=== PATIENT | female | born 1935 | race Caucasian/White ===

== ENCOUNTER → 2017-06-25 | Outpatient (CLI) | payer OTHER, MEDICARE | LOC: CIMAGING 09:03 | PROVIDERS: ATTEND Physician Assistant | DX: K59.00 Constipation, unspecified (principal) | CPT/HCPCS: 74020-PO ==

== ENCOUNTER 2017-09-15 14:52 | Observation (INO) | payer OTHER, MEDICARE ==
--- NOTE | 2017-09-15 15:40 | EDPHY ---
H & P Time Seen by Provider: 09/15/17 15:21 HPI/ROS: CHIEF COMPLAINT: Fall, head injury HISTORY OF PRESENT ILLNESS: This patient is a non-anticoagulated 82 y/o female arriving with her family following a fall and subsequent head laceration this morning around 10:00am, five hours prior to arrival. She fell into her bathtub because she was dizzy, and struck her head, breaking the soap dish in her fall. She has a RUIZ, somewhat worsened from her usual RUIZ's. She saw her MD yesterday for RUIZ's and increased the dosage of gabapentin yesterday evening with the advice of her physician. She has chronic headaches, and receives Botox injections and takes gabapentin for relief. Yesterday, she took 2 gabapentin in the afternoon, 2-4 last night and 1 this morning. She was feeling dizzy all morning, but the dizziness has resolved now. She denies any chest pain or shortness of breath. She has not vomited. She has been able to eat and drink. She has had cold symptoms for the last week, which began with congestion and now presents as a persistent cough. She denies fever. No diarrhea, urinary complaints, rhinorrhea, sore throat, or other associated symptoms. REVIEW OF SYSTEMS: A 10 point review of systems was performed and is negative with the exception of the elements mentioned in the history of present illness. Past Medical/Surgical History: 1. Hypertension 2. Neck fracture 3. Renal surgery 5. Back surgery 6. Hysterectomy Social History: Family at bedside. Retired. Lives in [place]. Smoking Status: Never smoked Physical Exam: General Appearance: Alert, pleasant and smiling Head: 4cm laceration to left temporal area Eyes: No conjunctival erythema, PERRLA, EOMI ENT, Mouth: No hemotympanum, no oral trauma, no bony tenderness Neck: Non-tender, full range of motion without pain Respiratory: No chest wall tenderness, normal respiratory rate, lungs clear bilaterally Cardiovascular: Regular rate and rhythm Abdomen: Abdomen is soft and non tender Skin: See head/extremity findings. No abrasions. Back: No midline T/L/S tenderness Extremities: 2cm superficial laceration to left wrist. Pelvis is stable and nontender; no extremity tenderness or deformity, full range of motion without pain Neurological: A&Ox3, normal motor function, normal sensory exam, cranial nerves intact Psychiatric: Mood and affect normal Constitutional: Initial Vital Signs Temperature (C) 36.6 C 09/15/17 14:58 Heart Rate 94 09/15/17 14:58 Respiratory Rate 18 09/15/17 14:58 Blood Pressure 149/90 H 09/15/17 14:58 O2 Sat (%) 94 09/15/17 14:58 O2 Delivery Mode Room Air O2 (L/minute) 2 Allergies/Adverse Reactions: No Known Allergies Allergy (Unverified 09/15/17 14:57) Home Medications: Medication Instructions Recorded Aspirin [Aspirin 325 mg (*)] 325 mg PO DAILY PRN 09/15/17 Atorvastatin Calcium [Lipitor 20 20 mg PO HS 09/15/17 mg (*)] Cholecalciferol Vit D3 [Vitamin D3 1,000 units PO DAILY 09/15/17 (*)] Diphenoxylate HCl/Atropine 1 tab PO DAILY PRN 09/15/17 [Diphenoxylate-Atrop 2.5-0.025] Duloxetine HCl [Duloxetine HCl] 120 mg PO HS 09/15/17 Estradiol [Estradiol 1 MG (*)] 1 mg PO DAILY 09/15/17 Gabapentin [Neurontin 100 MG (*)] 100 mg PO TID 09/15/17 Levothyroxine Sodium 100 mcg PO DAILY@06 09/15/17 Losartan Potassium [Cozaar 50 mg 50 mg PO DAILY 09/15/17 (*)] traZODone [traZODONE 50MG (*)] 150 mg PO HS 09/15/17 Medical Decision Making - Diagnostics EKG Interpretation: EKG interpreted by me reveals normal sinus rhythm, rate 84, diffuse nonspecific T-wave flattening. Rate repeat EKG interpreted by me reveals normal sinus rhythm, rate 78, diffuse T-wave flattening. Imaging Results: Imaging Impressions Head CT 09/15/17 15:47 Impression: Senescent features, with no acute intracranial abnormality identified on this unenhanced CT evaluation. If there is further clinical concern regarding the patient's symptoms, MR imaging is suggested, if not otherwise contraindicated. Findings were discussed with JODI CARRANZA MD at 16:17, on 09/15/2017. Chest X-Ray 09/15/17 16:23 Impression: Minimal left basilar subsegmental atelectasis. Imaging: Discussed imaging studies w/ faculty i on call medical assistant Radiologist, I viewed and interpreted images myself Procedures: Procedure: Laceration repair. Verbal consent was obtained from the patient. The linear 4cm laceration on the left temporal scalp was anesthetized using lidocaine. The wound was cleaned with standard ED protocol, draped and explored to its base with a gloved finger. The galea was repaired with 5-0 Vicryl. The skin was repaired with farshad. The wound repair was simple. The procedure was performed by myself, Dr. Carranza ED Course/Re-evaluation: 82 y/o female presents following a fall due to dizziness and subsequent head injury 5 hours prior to arrival. Exam reveals 4cm laceration to left temporal area and 2cm superficial laceration to left wrist. Plan for CT head to evaluate for ICH. Plan for chest x-ray due to patient's persistent cough and hypoxia. Plan for EKG, labs including CBC, BMP, Troponin. The patient's dizziness was likely due to increased gabapentin dosage, however I will evaluate for cardiogenic or other causes. Normal sinus rhythm, rate 84, diffuse nonspecific T-wave flattening. 16:[address] Bob, radiologist. CT head negative. Reviewed chest x-ray. Negative for pneumonia or other acute processes. Compared to x-ray from 09/2016. 17:00 Laceration repair. See procedure note above. 17:52 Laboratory studies reviewed. Troponin elevated at 1.3. Patient is mildly anemic, Hct 34.2. Reassessed patient. Discussed results of laboratory studies. She is currently asymptomatic. Plan to admit for acute coronary syndrome. Aspirin 324 mg orally given. Repeat EKG is unchanged. 18:[address] Omer, hospitalist. Plan to consult with sanding supervisor resource economist. 18:[address] Tucker, sanding supervisor. [facility] will consult. Differential Diagnosis: Differential diagnosis includes though is not limited to cardiac dysrhythmia, CVA, TIA, GI bleed, sepsis, hypoglycemia. - Data Points Laboratory Results: Laboratory Results 09/15/17 16:35 09/15/17 16:35 09/15/17 09/15/17 16:35 16:35 WBC 6.24 10^3/uL 10^3/uL (3.80-9.50) RBC 3.66 10^6/uL L 10^6/uL (4.18-5.33) Hgb 11.7 g/dL L g/dL (12.6-16.3) Hct 34.2 % L % (38.0-47.0) MCV 93.4 fL fL (81.5-99.8) MCH 32.0 pg pg (27.9-34.1) MCHC 34.2 g/dL g/dL (32.4-36.7) RDW 13.2 % % (11.5-15.2) Plt Count 194 10^3/uL 10^3/uL (150-400) MPV 9.3 fL fL (8.7-11.7) Neut % (Auto) 74.0 % % (39.3-74.2) Lymph % (Auto) 14.1 % L % (15.0-45.0) Dougherty % (Auto) 10.9 % % (4.5-13.0) Eos % (Auto) 0.2 % L % (0.6-7.6) Baso % (Auto) 0.3 % % (0.3-1.7) Nucleat RBC Rel Count 0.0 % % (0.0-0.2) Absolute Neuts (auto) 4.62 10^3/uL 10^3/uL (1.70-6.50) Absolute Lymphs (auto) 0.88 10^3/uL L 10^3/uL (1.00-3.00) Absolute Monos (auto) 0.68 10^3/uL 10^3/uL (0.30-0.80) Absolute Eos (auto) 0.01 10^3/uL L 10^3/uL (0.03-0.40) Absolute Basos (auto) 0.02 10^3/uL 10^3/uL (0.02-0.10) Absolute Nucleated RBC 0.00 10^3/uL 10^3/uL (0-0.01) Immature Gran % 0.5 % % (0.0-1.1) Immature Gran # 0.03 10^3/uL 10^3/uL (0.00-0.10) Sodium 130 mEq/L L mEq/L (134-144) Potassium 3.9 mEq/L mEq/L (3.5-5.2) Chloride 100 mEq/L mEq/L (97-110) Carbon Dioxide 22 mEq/l mEq/l (22-31) Anion Gap 8 mEq/L mEq/L (8-16) BUN 20 mg/dL mg/dL (7-23) Creatinine 0.9 mg/dL mg/dL (0.6-1.0) Estimated GFR 60 Glucose 100 mg/dL mg/dL (70-100) Calcium 8.5 mg/dL mg/dL (8.5-10.4) Troponin I 1.310 ng/mL H ng/mL (0.000-0.034) Medications Given: Oxycodone HCl (Oxycodone Ir) 5 - 10 mg PO Q4 PRN PRN Reason: Pain, Severe Able to Take PO Stop: 09/25/17 18:28 Last Admin: 09/15/17 19:31 Dose: 5 mg Discontinued Medications Aspirin (Aspirin) 324 mg PO EDNOW ONE Stop: 09/15/17 17:58 Last Admin: 09/15/17 18:07 Dose: 324 mg Ibuprofen (Motrin) 600 mg PO EDNOW ONE Stop: 09/15/17 17:01 Last Admin: 09/15/17 17:09 Dose: 600 mg Departure - Departure Disposition: Home, Routine, Self-Care Clinical Impression: Elevated troponin Head injury Qualifiers: Encounter type: initial encounter Qualified Code(s): S09.90XA - Unspecified injury of head, initial encounter Scalp laceration Qualifiers: Encounter type: initial encounter Qualified Code(s): S01.01XA - Laceration without foreign body of scalp, initial encounter Condition: Good Report Scribed for: Jodi Carranza Report Scribed by: Paige Varma Date of Report: 09/15/17 Time of Report: 15:40
--- NOTE | 2017-09-15 15:50 | CPEKG ---
Heart Rate: 84 RR Interval: 714 P-R Interval: 176 QRSD Interval: 88 QT Interval: 325 QTC Interval: 385 P [place]: 51 QRS [place]: -11 T Wave [place]: 65 EKG Severity - BORDERLINE ECG - EKG Impression: SINUS RHYTHM EKG Impression: BORDERLINE T ABNORMALITIES, ANT-LAT LEADS Electronically Signed By: Jodi Carranza 15-Sep-2017 23:00:34
[2017-09-15 16:43] LABS: % IMMATURE GRANULYOCYTES 0.5 % (0.0-1.1); ABSOLUTE IMMATURE GRANULOCYTES 0.03 10^3/uL (0.00-0.10); ADD DIFF? NO; ADD MORPH? NO; ADD SCAN? NO; ATYPICAL LYMPHOCYTE FLAG 30 (0-99); FRAGMENT RBC FLAG 0 (0-99); HEMATOCRIT 34.2 % (38.0-47.0); HEMOGLOBIN 11.7 g/dL (12.6-16.3); LEFT SHIFT FLG 0 (0-99); LIPEMIA HEMOLYSIS FLAG 90 (0-99); MEAN CELL HEMOGLOBIN CONCENTR. 34.2 g/dL (32.4-36.7); MEAN CELL VOLUME 93.4 fL (81.5-99.8); MEAN PLATELET VOLUME 9.3 fL (8.7-11.7); PLATELET CLUMPS FLAG 0 (0-99); PLATELET COUNT 194 10^3/uL (150-400); RED BLOOD CELL COUNT 3.66 10^6/uL (4.18-5.33); RED CELL DISTRIBUTION WIDTH 13.2 % (11.5-15.2)
[2017-09-15] MEDS ORDERED: IBUPROFEN 600 MG TAB PO ONE (17:00)
[2017-09-15 17:39] LABS: ANION GAP 8 mEq/L (8-16); CALCIUM 8.5 mg/dL (8.5-10.4); CARBON DIOXIDE 22 mEq/l (22-31); CHLORIDE 100 mEq/L (97-110); CREATININE 0.9 mg/dL (0.6-1.0); GLOMERULAR FILTRATION RATE 60; GLUCOSE 100 mg/dL (70-100); POTASSIUM 3.9 mEq/L (3.5-5.2); SODIUM 130 mEq/L (134-144)
[2017-09-15] MEDS ORDERED: ASPIRIN 81 MG CHEWABLE TAB PO ONE (17:57)
--- NOTE | 2017-09-15 18:12 | CPEKG ---
Heart Rate: 78 RR Interval: 769 P-R Interval: 204 QRSD Interval: 94 QT Interval: 400 QTC Interval: 456 P [place]: 50 QRS [place]: -11 T Wave [place]: 75 EKG Severity - BORDERLINE ECG - EKG Impression: SINUS RHYTHM EKG Impression: BORDERLINE T ABNORMALITIES, ANTERIOR LEADS Electronically Signed By: Jodi Carranza 15-Sep-2017 23:00:10
[2017-09-15] MEDS ORDERED: ACETAMINOPHEN 325 MG TAB PO PRN (18:29)
[2017-09-15] MEDS ORDERED: ONDANSETRON 4 MG/2 ML VIAL IVP PRN (18:29)
[2017-09-15] MEDS ORDERED: HYDROmorphone HCL/NS/PF 0.4 MG/2 ML SYR IVP PRN (18:29)
[2017-09-15] MEDS ORDERED: NS 1,000 ML IV SCH (18:30)
[2017-09-15] MEDS: oxyCODONE IR 5 MG TAB PO PRN ×2 (19:31→21:08)
[2017-09-15] MEDS ORDERED: DIPHENOXYLATE/ATROPINE LOMOTIL 1 TAB PO PRN (20:49)
[2017-09-15] MEDS ORDERED: ASPIRIN 325 MG TAB PO PRN (20:49)
[2017-09-15] MEDS ORDERED: DULoxetine 60 MG CAP PO SCH (21:00)
[2017-09-15] MEDS ORDERED: ATORVASTATIN CALCIUM 20 MG TAB PO SCH (21:00)
[2017-09-15] MEDS: GABAPENTIN 100 MG CAP PO SCH (21:07)
--- NOTE | 2017-09-15 21:21 | GHP ---
[f rep st] HISTORY AND PHYSICAL DATE OF ADMISSION: 09/15/2017 CHIEF COMPLAINT: Dizziness. HISTORY: The patient is an 82-year-old female, who woke up this morning just not feeling well. She was very dizzy. She tried to go to the bathroom. She had a big fall in the bathroom hitting her hea d and suffering a head laceration. This occurred about 10:00 this morning. She describes her dizzin ess as lightheadedness and not vertigo. She was feeling shaky all over. She denies any chest pain o r shortness of breath. Yesterday, she was having worsening headache, which she suffer from chronically as a complication of her previous neck fusion. She saw Dr. García and had Botox injections into her head and neck yesterda y, and her gabapentin was increased. In the emergency room, she was found to have a 4 cm scalp laceration, for which she underwent farshad . PAST MEDICAL HISTORY: 1. Hypertension. 2. Headaches, receiving Botox therapy. PAST SURGICAL HISTORY: Spinal fusion, hysterectomy. MEDICATIONS: Please see computer record for full detailed list. ALLERGIES: No known drug allergies. SOCIAL HISTORY: Quit smoking in 1983. Drinks 1-2 glasses of wine 3 times a week. She lives alone. REVIEW OF SYSTEMS: Complete review of systems obtained. Review of systems negative regarding consti tutional, HEENT, GI, pulmonary, cardiovascular, , hematology, skin, musculoskeletal, endocrine, and psych except for positives and negatives as in HPI. FAMILY HISTORY: Reviewed, noncontributory to presenting complaint. PHYSICAL EXAMINATION: GENERAL: Well-developed, well-nourished female, in no acute distress. VITAL SIGNS: Temperature is 36.6, pulse 85, blood pressure 124/77, saturating 98% on room air. EYES: Nor mal conjunctivae. Pupils equal, round, react to light. ENT: Normal ears and nose. Hearing intact. Normal teeth. Oropharynx moist. NECK: Trachea midline. No thyromegaly. CHEST: Normal effort. LUNGS: Clear to auscultation bilaterally. CARDIOVASCULAR: Regular rhythm. No murmur. No lower e xtremity edema. ABDOMEN: Soft, nontender. No hepatosplenomegaly. SKIN: Warm, dry, intact. No ra sh. MUSCULOSKELETAL: No cyanosis or clubbing. Strength 5/5 upper and lower extremities. NEUROLOGI C: Cranial nerves intact. Normal sensation to light touch. PSYCHIATRIC: Alert and oriented x3. N ormal affect. Normal judgment. Normal memory. LABORATORY DATA: White count 6.24, hematocrit 34.2, platelets 194. Sodium 130, potassium 3.9, chlor mariposa 100, bicarb 22, BUN 20, creatinine 0.9, glucose 100. Troponin 1.3. EKG viewed by me. My person al interpretation is normal sinus rhythm with diffuse T-wave flattening. Chest x-ray is negative. H ead CT is negative. ASSESSMENT/PLAN: 1. Dizziness with AN elevated troponin. She has never had any chest pain. WE will follow troponins serially and check an echocardiogram. Cardiology has been consulted and will see her in the morning . We will make her n.p.o. after midnight as she may need stress testing versus cardiac catheterizati on. 2. Head laceration status post fall. She received farshad in the emergency room. 3. Headache, status post Botox injections yesterday to her neck and scalp. She also had her gabapen tin increased. I query if this may be contributing to her dizziness, especially if it is not determi ibrahima to be cardiac in nature. 4. Hyponatremia. I suspect she is dry. We will hydrate with IV fluids and recheck. COR STATUS: Full. ADMISSION STATUS: We will admit to observation as she might be able go home tomorrow if she stabiliz es rapidly. DEEP VENOUS THROMBOSIS PROPHYLAXIS: She is moderate risk. We will place on subcu [facility]. /[id number]/MODL
[2017-09-16] MEDS: oxyCODONE IR 5 MG TAB PO PRN ×3 (04:12→11:44)
[2017-09-16 05:06] LABS: % IMMATURE GRANULYOCYTES 0.4 % (0.0-1.1); ABSOLUTE IMMATURE GRANULOCYTES 0.02 10^3/uL (0.00-0.10); ADD DIFF? NO; ADD MORPH? NO; ADD SCAN? NO; ATYPICAL LYMPHOCYTE FLAG 40 (0-99); FRAGMENT RBC FLAG 0 (0-99); HEMATOCRIT 34.3 % (38.0-47.0); HEMOGLOBIN 11.3 g/dL (12.6-16.3); LEFT SHIFT FLG 0 (0-99); LIPEMIA HEMOLYSIS FLAG 80 (0-99); MEAN CELL HEMOGLOBIN 31.5 pg (27.9-34.1); MEAN CELL HEMOGLOBIN CONCENTR. 32.9 g/dL (32.4-36.7); MEAN CELL VOLUME 95.5 fL (81.5-99.8); MEAN PLATELET VOLUME 9.5 fL (8.7-11.7); PLATELET CLUMPS FLAG 0 (0-99); PLATELET COUNT 180 10^3/uL (150-400); RED BLOOD CELL COUNT 3.59 10^6/uL (4.18-5.33); RED CELL DISTRIBUTION WIDTH 13.5 % (11.5-15.2)
[2017-09-16 05:08] LABS: ALANINE AMINOTRANSFERASE 28 IU/L (9-52); ALBUMIN 2.9 g/dL (3.5-5.0); ALKALINE PHOSPHATASE 48 IU/L (38-126); ANION GAP 9 mEq/L (8-16); ASPARTATE AMINOTRANSFERASE 22 IU/L (14-46); BILIRUBIN,TOTAL 0.4 mg/dL (0.1-1.4); BILIRUBIN-CONJUGATED 0.3 mg/dL (0.0-0.5); BILIRUBIN-UNCONJUGATED 0.1 mg/dL (0.0-1.1); CALCIUM 8.8 mg/dL (8.5-10.4); CARBON DIOXIDE 26 mEq/l (22-31); CHLORIDE 103 mEq/L (97-110); CHOLESTEROL 127 mg/dL (140-220); CHOLESTEROL/HDL RATIO 1.92 RATIO (1.00-4.44); CREATININE 0.9 mg/dL (0.6-1.0); GLOMERULAR FILTRATION RATE 60; GLUCOSE 89 mg/dL (70-100); HIGH DENSITY LIPOPROTEIN 66 mg/dL (40-85); LDL/HDL RATIO 0.62 RATIO (1.00-3.22); LOW DENSITY LIPOPROTEIN 41 mg/dL (80-100); NON-HIGH DENSITY LIPOPROTEIN 61 mg/dL (90-129); POTASSIUM 3.8 mEq/L (3.5-5.2); SODIUM 138 mEq/L (134-144); TOTAL PROTEIN 5.3 g/dL (6.3-8.2); TRIGLYCERIDE 100 mg/dL (35-135); VERY LOW DENSITY LIPOPROTEINS 20 mg/dL (8-25)
[2017-09-16 05:19] LABS: TROPONIN I 0.583 ng/mL (0.000-0.034)
[2017-09-16 05:37] LABS: CORTISOL-AM 11.1 ug/dL (4.5-22.7)
[2017-09-16] MEDS ORDERED: LEVOTHYROXINE 100 MCG TAB PO SCH (06:00)
--- NOTE | 2017-09-16 08:25 | CPEKG ---
Heart Rate: 71 RR Interval: 845 P-R Interval: 188 QRSD Interval: 94 QT Interval: 432 QTC Interval: 470 P [place]: 57 QRS [place]: -9 T Wave [place]: -20 EKG Severity - ABNORMAL ECG - EKG Impression: SINUS RHYTHM EKG Impression: NONSPECIFIC T ABNORMALITIES, ANTERIOR LEADS Electronically Signed By: Brandon Tucker 17-Sep-2017 13:13:41
[2017-09-16] MEDS: GABAPENTIN 100 MG CAP PO SCH ×2 (08:51→17:12)
[2017-09-16 08:56] LABS: COLOR YELLOW; LEUKOCYTE ESTERASE,URINE NEGATIVE (NEGATIVE); NITRITE,URINE NEGATIVE (NEGATIVE)
[2017-09-16] MEDS ORDERED: ESTRADIOL 1 MG TAB PO SCH (09:00)
[2017-09-16] MEDS ORDERED: LOSARTAN POTASSIUM 50 MG TAB PO SCH (09:00)
[2017-09-16] MEDS ORDERED: ENOXAPARIN 40 MG/0.4 ML SYR SC SCH (09:00)
[2017-09-16] MEDS ORDERED: ASPIRIN EC 81 MG TAB PO SCH (09:00)
--- NOTE | 2017-09-16 09:32 | ECHO ---
[email or web address] [address] [address] Main: [phone] Fax: [email or web address] Echocardiogram Name: RONY BASS MR#: [id number] Study Date: 09/16/2017 Study Time: 07:52 AM Date of : 1935 Age: 82 year(s) Height: 160 cm (63 in.) Weight: 53.98 kg (119 lb.) BSA: 1.55 m2 Gender: Female Examination: Echo Indication: Elevated troponin Image Quality: Contrast: Requested by: Katlyn Omer BP: 144 mmHg/80 mmHg Heart Rate: Rhythm: Indication: Elevated troponin Procedure Staff Derrick Boat Leverman: Love Koo Physician: Noel Arnold Requesting Provider: Conclusions: No pericardial effusion. Normal left ventricular systolic function. No regional wall motion abnormalities in the setting of chest pain. Mild mitral and tricuspid regurgitation with normal right ventricular systolic pressures. No etiology for syncope suggested by this study. Measurements: Chambers Valvular Assessment AV/MV Valvular Assessment TV/PV Normal Normal Normal Name Value Range Name Value Range Name Value Range Ao Barbara (MM): 3.4 cm (2.2 cm-3.7 AV meanP mmHg ( - ) TR Vmax: 1.79 mm/s ( - ) cm) MV E Vmax: 0.67 m/s ( - ) TR PGmax: 13 mmHg ( - ) IVSd (2D): 0.7 cm (0.6 cm-1.1 MV A Vmax: 0.83 m/s ( - ) syst. PAP: 18 mmHg ( - ) cm) MV E/A: 0.81 ( - ) LVDd (2D): 4.2 cm (3.9 cm-5.3 cm) LVDs (2D): 2.5 cm (2.1 cm-4 cm) LVPWd (2D): 0.7 cm ( - ) LVEF (MOD4): 66 % (>=55 %) Continued Measurements: Chambers Valvular Assessment AV/MV Valvular Assessment TV/PV Name Value Name Value Name Value LADs: 2.5 cm MV E/E' Septal: 12.20 CVP (est.): 5 mmHg LADs Lon.8 cm MV E/E' Lateral: 12.70 LA Area: 11.6 cm2 Findings: Left Ventricle: Patient: RONY BASS Study Date: 09/16/2017 Page 1 of 2 07:52 AM Normal size left ventricle. Normal global systolic LV function. EF is 66 %. No regional wall motion abnormality. Right Ventricle: Normal size right ventricle. Left Atrium: The left atrium is normal in size. Right Atrium: The right atrium is normal in size. Mitral Valve: The mitral valve is normal in appearance and function. Mild mitral valve regurgitation is present. Aortic Valve: The aortic valve is normal in appearance and function. Tricuspid Valve: The tricuspid valve is normal in appearance and function. Mild tricuspid regurgitation is present. Pulmonic Valve: Pulmonary valve not well visualized. Aorta: The aorta is normal. Pericardium: No pericardial effusion. There is pericardial fat. (No Signature Object) Patient: RONY BASS Study Date: 09/16/2017 Page 2 of 2 07:52 AM D:_[id number]
[2017-09-16 10:35] LABS: CK-MB INTERPRETATION NEGATIVE (NEGATIVE)
[2017-09-16 10:59] LABS: CREATINE KINASE-MB FRACTION 4.41 ng/mL (0.00-3.19)
[2017-09-16] MEDS ORDERED: METOPROLOL TARTRATE 25 MG TAB PO ONE (11:15)
[2017-09-16 12:56] VITALS: TEMP 97.7
[2017-09-16] MEDS ORDERED: IOPAMIDOL (ISOVUE 370) 100 ML BTL IV ONE (14:31)
--- NOTE | 2017-09-16 15:10 | ASMTCMCOM ---
CM Note CM Note Notes: 09/16/2017 Case Management Note Met w/pt and clovisjagdeep Davey [phone]. Pt lives independently; able to drive, prepare meals and care for her home. Daughter lives nearby and is supportive. Pt is followed by [facility]. PT recommending home. Case Management d/c poc: home independent when medically stable with family support. Case Management available if needs change. Date Signed: 09/16/2017 03:10 PM Electronically Signed By:Ines Luna RN
[2017-09-16 15:51] VITALS: BP 110/58; PULSE 58; RESP 1595
--- NOTE | 2017-09-16 17:04 | HOSPPROG ---
Hospitalist Progress Note Assessment/Plan: 82 yo F w syncope, + trop neg eval home today see dc summary Subjective: feels well Objective: Vital Signs Temp Pulse Resp BP Pulse Ox 36.5 C 58 L 1,595 H 110/58 L 2 L 09/16/17 15:42 09/16/17 15:42 09/16/17 15:42 09/16/17 15:42 09/16/17 15:42 Laboratory Results 09/16/17 04:24 09/16/17 04:24 09/15/17 09/16/17 09/17/17 05:59 05:59 05:59 Intake Total 400 750 Output Total 400 400 Balance 0 350 - Physical Exam Constitutional: no apparent distress, appears nourished Eyes: PERRL, anicteric sclera Ears, Nose, Mouth, Throat: moist mucous membranes, hearing normal Cardiovascular: regular rate and rhythym, no murmur, rub, or gallop Respiratory: no respiratory distress, no rales or rhonchi Gastrointestinal: normoactive bowel sounds, soft, non-tender abdomen Genitourinary: no bladder fullness, No aldridge in urethra Skin: warm, normal color Musculoskeletal: full muscle strength Neurologic: AAOx3 ICD10 Worksheet Patient Problems: Problems Problem Status Onset Elevated troponin Acute Head injury Acute Scalp laceration Acute chronic disease mgmt/transitional care Acute
[2017-09-16 17:08] VITALS: O2SAT 90
--- NOTE | 2017-09-16 17:26 | GDS ---
[f rep st] DISCHARGE SUMMARY DISCHARGE DIAGNOSES: 1. Syncope. 2. Positive troponin. 3. Neuropathic pain in her neck. 4. Hypertension. Please see admission history and physical by Dr. Katlyn Omer. The patient presented with syncope. She had a laceration of her head which was stapled. Workup included a troponin of 1.3 that rapidly trended down to 0.583. She had no chest pain. No pleuritic pain. Negative D-dimer. CT coronary a ngiogram demonstrated widely patent coronary arteries. She had a stable 6 mm nodule in her lungs, in her right middle lobe. She was informed. She attributes her symptoms to rapid up titration of her Neurontin with the resultant dizziness. This is certainly quite plausible clinically. She had an ech ocardiogram that was unremarkable. Chest x-ray that was unremarkable and really had stable vitals on ce here. She is discharged home. She did have some mild desaturation with rest. We discussed this and I urged her to seek care for followup dyspnea. /[id number]/MODL
--- NOTE | 2017-09-16 21:41 | GCON ---
[f rep st] CONSULTATION CARDIAC CONSULTATION DATE OF CONSULTATION: 09/15/2017 CHIEF COMPLAINT: Fall with elevated troponin. HISTORY OF PRESENT ILLNESS: The patient is an 82-year-old female with a history of hypertension and hyperlipidemia who presented to the hospital after a mechanical fall and found to have a mildly eleva abdirizak troponin. She has a history of spinal stenosis, and the day prior to admission, she had Botox in jections in her neck. The following morning, she woke up, feeling unsteady on her feet, needing to h old onto things to walk. She walked into the bathroom, turned her head, and fell into her bathtub. She denies any loss of consciousness. Eventually, she was able to make her way out of the bathtub an d called her boyfriend. She had laceration on her head and therefore came to the emergency room. On admission, her troponin was elevated at 1.[address]-T wave changes. A repeat EKG did sh ow anterior T-wave inversion. Her physical activity is limited secondary to her spinal stenosis. Nuvia gray tries to walk around the block daily. She denies any exertional chest discomfort, dyspnea on exert ion, or palpitations. She denies any of these symptoms at the time of her fall as well. She had a cardiac evaluation in July 2013 which included a nuclear stress test and angiogram. Her cardiac catheterization showed normal coronaries. PAST MEDICAL HISTORY: Hypertension, hyperlipidemia, osteoarthritis, spinal stenosis, 2 falls with in jury. FAMILY HISTORY: Her mother may have had a history of angina which began in her 70s. The details are unclear. SOCIAL HISTORY: She denies any ongoing tobacco use but did smoke, quitting in 1983. She is currentl y accompanied by her daughter and lives by herself. MEDICATIONS: Atorvastatin 20 mg daily, aspirin daily, estradiol 1 mg daily, Neurontin 100 mg t.i.d., levothyroxine 100 mcg daily, losartan 50 mg daily, trazodone 150 mg at bedtime. ALLERGIES: No known drug allergies. PHYSICAL EXAMINATION: GENERAL: Patient appears in no acute distress. VITALS: Unable to access her vitals at this time. They were reviewed earlier and are currently within normal limits. NECK: No carotid bruits or JVD present. LUNGS: Clear to auscultation. No wheezes, rhonchi, or crackles ausc ultated. CARDIAC: Regular rate and rhythm without any murmurs, rubs, or gallops appreciated. ABDOM EN: Soft, nontender, nondistended. EXTREMITIES: Palpable pulses bilaterally without any evidence o f edema. NEUROLOGIC: Nonfocal. SKIN: No obvious rashes or ecchymosis identified. PSYCHIATRIC: M ood and affect appropriate. LABORATORY: Troponin 1.3, 0.68, 0.583, LDL 41. IMAGING: EKG on admission revealed normal sinus rhythm with nonspecific ST-T wave changes. A repeat EKG showed T-wave inversion in the anterior leads. ASSESSMENT: The patient is an 82-year-old female with history of hypertension and hyperlipidemia who presents with mechanical fall and found to have a mildly elevated troponin and abnormal EKG. PLAN: The patient presents today after a mechanical fall and found to have elevated troponin and EKG changes concerning for anterior ischemia. She had a prior cardiac workup in 2012, at which time, he r coronary arteries were patent. With the changes, I do think she needs further cardiac evaluation. We discussed coronary CT angiogram versus an angiogram. I think it is reasonable to begin with luis miguel nvasive studies in her particular case. She will have a coronary CT angiogram today. Her heart rate is a little elevated, running between 70 and 80 beats per minute. She will get 1 dose of metoprolol 25 mg p.o. for better rate control. If additional metoprolol is needed and her blood pressure is st able, she could receive a 2nd dose. A CPK and CK-MB have also been ordered to further risk stratify. She should remain on aspirin, losartan, and statin therapy. Her LDL is currently well controlled a t 41. /[id number]/MODL
--- NOTE | 2017-09-17 11:36 | ASDISCHSUM ---
Discharge Information Plan Status:Home with No Needs Medically Cleared to Leave:09/15/2017 Discharge Date:09/16/2017 05:53 PM CM D/C Disposition:Home, Routine, Self-Care ADT D/C Disposition:Home, Routine, Self-Care Projected Discharge Date:09/16/2017 12:00 AM Transportation at D/C: Discharge Delay Reason: Follow-Up Date:09/16/2017 12:00 AM Discharge Slot: Final Diagnosis: Placement Information Patient Contact Information Contact Name:DONOVAN Relationship:Daughter Address:[address] Work Phone: City:[place] Alternate Phone: [facility]/Zip Code:[place] [address] Email: Financial Information Financial Class: Primary Plan Desc:MEDICARE OUTPATIENT Primary Plan Number:[id number] Secondary Plan Desc:[employer]/M[employer] SUPPLEMENT Secondary Plan Number:[id number] Assessment Information [facility] CM Progress Note CM Note CM Note Notes: 09/16/2017 Case Management Note Met w/pt and dmitry Davey [phone]. Pt lives independently; able to drive, prepare meals and care for her home. Daughter lives nearby and is supportive. Pt is followed by [facility]. PT recommending home. Case Management d/c poc: home independent when medically stable with family support. Case Management available if needs change. Date Signed: 09/16/2017 03:10 PM Electronically Signed By:Ines Luna RN Intervention Information Intervention Type:*Incorrect Registration Date of Service:09/16/2017 10:54 AM Patient Type:Inpatient Staff Member:SUKHDEV Sears Courtney Hours: Discipline: Severity: Comment:
== END 2017-09-16 17:53 | disposition home or self-care (01) ==
LOC: INTOOBSV 18:02 → F2W 18:32
PROVIDERS: ADMIT Internal Medicine; ATTEND Internal Medicine
PROC: 0HQ0XZZ Repair Scalp Skin, External Approach (ICD-10-PCS; principal; 2017-09-15)
DX: R55 Syncope and collapse (principal); S01.01XA Laceration without foreign body of scalp, initial encounter; S61.512A Laceration without foreign body of left wrist, initial encounter; R79.89 Other specified abnormal findings of blood chemistry; R91.1 Solitary pulmonary nodule; M54.2 Cervicalgia; I10 Essential (primary) hypertension; W18.2XXA Fall in (into) shower or empty bathtub, initial encounter; Y93.E1 Activity, personal bathing and showering; Y92.002 Bathroom of unspecified non-institutional (private) residence as the place of occurrence of the external cause; Z98.1 Arthrodesis status; Z79.82 Long term (current) use of aspirin
CPT/HCPCS: 12002; 70450; 71020; 75574; 93005; 93306; 97161; 97165; G0378; G8978; G8979; G8987; G8988; J1650; Q9967

== ENCOUNTER → 2017-11-13 | Outpatient (CLI) | payer OTHER, MEDICARE | LOC: FIMAGING 13:23 | PROVIDERS: ATTEND Physician Assistant | DX: R09.02 Hypoxemia (principal); I10 Essential (primary) hypertension ==

== ENCOUNTER → 2018-04-12 | Outpatient (CLI) | payer OTHER, MEDICARE | LOC: FIMAGING 09:28 | PROVIDERS: ATTEND Physician Assistant | PROC: CP171ZZ Planar Nuclear Medicine Imaging of Spine and Pelvis using Technetium 99m (Tc-99m) (ICD-10-PCS; principal; 2018-04-12) | DX: M47.896 Other spondylosis, lumbar region (principal); M47.897 Other spondylosis, lumbosacral region; Z96.642 Presence of left artificial hip joint | CPT/HCPCS: 78315; A9503 ==

== ENCOUNTER → 2018-07-15 | Outpatient (CLI) | payer OTHER, MEDICARE | LOC: FIMAGING 11:37 | PROVIDERS: ATTEND Orthopaedic Surgery Orthopaedic Surgery of the Spine | DX: Z01.818 Encounter for other preprocedural examination (principal); M51.36 Other intervertebral disc degeneration, lumbar region; M51.37 Other intervertebral disc degeneration, lumbosacral region; M41.86 Other forms of scoliosis, lumbar region ==

== ENCOUNTER → 2018-07-16 | Outpatient (CLI) | payer OTHER, MEDICARE | LOC: FIMAGING 09:53 | PROVIDERS: ATTEND Family Medicine | DX: Z01.811 Encounter for preprocedural respiratory examination (principal); M51.37 Other intervertebral disc degeneration, lumbosacral region; M41.86 Other forms of scoliosis, lumbar region ==

== ENCOUNTER → 2019-01-07 | Outpatient (CLI) | payer OTHER, MEDICARE | LOC: CIMAGING 11:14 | PROVIDERS: ATTEND Physical Medicine & Rehabilitation | DX: S02.91XA Unspecified fracture of skull, initial encounter for closed fracture (principal) | CPT/HCPCS: 70450-PO ==

== ENCOUNTER → 2019-03-17 | Outpatient (CLI) | payer OTHER, MEDICARE | LOC: EMCIMAGING 09:41 ==